=== PATIENT | male | born 1990 | race Hispanic/Latino ===

== ENCOUNTER 2018-04-10 20:49 | Emergency (ER) | payer BC ==
[2018-04-10 21:13] VITALS: BP 143/72; PULSE 116; RESP 17; TEMP 98.3; O2SAT 100
--- NOTE | 2018-04-10 21:28 | ED PDOC ---
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 PMD: none provided Past Medical History Reviewed: Historical Data, Nursing Documentation, Vital Signs Vital Signs: Last Vital Signs Temp 98.3 F 04/10/18 20:51 Pulse 116 H 04/10/18 20:51 Resp 17 04/10/18 20:51 BP 143/72 04/10/18 20:51 Pulse Ox 100 04/10/18 20:51 - Medical History PMH: No Chronic Diseases - Surgical History Surgical History: No Surg Hx - Family History Family History: States: Unknown Family Hx - Allergies Allergies/Adverse Reactions: Allergies Allergy/AdvReac Type Severity Reaction Status Date / Time No Known Allergies Allergy Verified 04/10/18 21:13 Review of Systems ROS Statement: Except As Marked, All Systems Reviewed And Found Negative Musculoskeletal: Positive for: Foot Pain (left ankle with swelling) Physical Exam - Reviewed Nursing Documentation Reviewed: Yes Vital Signs Reviewed: Yes - Physical Exam Appears: Positive for: Non-toxic, No Acute Distress Head Exam: Positive for: ATRAUMATIC, NORMAL INSPECTION, NORMOCEPHALIC Skin: Positive for: Normal Color Eye Exam: Positive for: Normal appearance Neck: Positive for: Normal Respiratory: Positive for: Normal Breath Sounds. Negative for: Respiratory Distress Extremity: Positive for: Other (decreased right plantar flexion; right achilles tendon non-palpable). Negative for: Tenderness (right ankle), Deformity (right foot), Swelling (right ankle) Neurologic/Psych: Positive for: Alert, Oriented, Gait (right-sided limp). Negative for: Motor/Sensory Deficits - ECG O2 Sat by Pulse Oximetry: 100 (RA) Pulse Ox Interpretation: Normal Medical Decision Making Medical Decision Making: Initial Plan: * Motrin 600mg PO * Xray ankle (right) * Podiatry consult Pt seen and examined by Podiatry resident. Splint placed, crutches. Scribe Attestation: Documented by Keya Macdonald, acting as a scribe for Katina Ruby PA-C. Provider Scribe Attestation: All medical record entries made by the Scribe were at my direction and personally dictated by me. I have reviewed the chart and agree that the record accurately reflects my personal performance of the history, physical exam, medical decision making, and the department course for this patient. I have also personally directed, reviewed, and agree with the discharge instructions and disposition. Disposition - Clinical Impression Clinical Impression: Achilles tendon injury - Patient ED Disposition Is Patient to be Admitted: No Counseled Patient/Family Regarding: Diagnosis, Need For Followup - Disposition Referrals: Eneida Car MD [Staff Provider] - Disposition: Routine/Home Disposition Time: 23:03 Condition: STABLE Additional Instructions: Please follow-up with Dr. Daley. Instructions: Achilles Tendon Rupture Forms: [employer] ([place])
--- NOTE | 2018-04-10 23:13 | CP.PCM.CON ---
History of Present Illness - History of Present Illness History of Present Illness: Consult note for Dr. Jayme Banegas 28M with no PMH seen in ED complaining of pain to his right posterior leg. Patient states that this evening he was playing soccer for the first time in many months when he felt a pop in the back of his right leg at the level of the achilles. Patient states that he is not currently in any pain and has not tried any forms of medication other than the ibuprofen given to him on arrival to the ED. He is AAO x 3 and NAD. Denies any further pedal complaints at this time. Denies any recent N/V/F/C/CP/SOB/D Meds: Denies All: NKDA PSH: Denies FHx: Unremarkable SHx: Denies tobacco products and illicit drug use, social EtOH, works as a software installer Review of Systems - Review of Systems All systems: reviewed and no additional remarkable complaints except Review of Systems: as per HPI Past Patient History - Past Social History Smoking Status: Never Smoked - CARDIAC Hx Cardiac Disorders: No - PULMONARY Hx Respiratory Disorders: No - NEUROLOGICAL Hx Neurological Disorder: No - HEENT Hx HEENT Problems: No - RENAL Hx Chronic Kidney Disease: No - ENDOCRINE/METABOLIC Hx Endocrine Disorders: No - HEMATOLOGICAL/ONCOLOGICAL Hx Blood Disorders: No - INTEGUMENTARY Hx Dermatological Problems: No - MUSCULOSKELETAL/RHEUMATOLOGICAL Hx Musculoskeletal Disorders: No - GASTROINTESTINAL Hx Gastrointestinal Disorders: No - GENITOURINARY/GYNECOLOGICAL Hx Genitourinary Disorders: No - PSYCHIATRIC Hx Psychophysiologic Disorder: No Hx Substance Use: No - SURGICAL HISTORY Hx Surgeries: No - ANESTHESIA Hx Anesthesia: Yes Meds Allergies/Adverse Reactions: Allergies Allergy/AdvReac Type Severity Reaction Status Date / Time No Known Allergies Allergy Verified 04/10/18 21:13 Physical Exam - Constitutional Appears: Well, Non-toxic, No Acute Distress - Head Exam Head Exam: ATRAUMATIC, NORMOCEPHALIC - Extremities Exam Additional comments: LE focused exam: Vasc: DP/PT pulses fully palpable 2/4 b/l. Skin temperature warm to warm from proximal to distal. CFT < 3 seconds to all digits b/l. No edema noted b/l Neuro: Epicritic and protective sensation grossly intact b/l Derm: No open lesions, wound, maceration, xerosis abnormal pigmentation or abnormal growths noted b/l MSK: Minimal POP to right achilles tendon. Palpable dell noted to right achilles tendon. Plantarflexion of right foot weakened but present in comparison to left foot - Neurological Exam Neurological exam: Alert, Oriented x3 - Psychiatric Exam Psychiatric exam: Normal Affect, Normal Mood Results - Vital Signs Recent Vital Signs: Last Vital Signs Temp 98.3 F 04/10/18 20:51 Pulse 116 H 04/10/18 20:51 Resp 17 04/10/18 20:51 BP 143/72 04/10/18 20:51 Pulse Ox 100 04/10/18 21:33 Assessment & Plan - Assessment and Plan (Free Text) Assessment: 28M with partial vs. full achilles tendon rupture of right foot Plan: Patient seen and evaluated Plan discussed with attending Dr. Jayme Banegas Xray right ankle: No acute fracture or dislocation appreciated. Kager's triangle noted to not be intact Patient leg dressed in [place] compression with plantarflexed posterior splint Patient dispensed crutches and instructed to keep dressing C/D/I Patient instructed to practice RICE therapy for time being Pt to follow up in Dr. Jayme Banegas's office for probable pre-operative evaluation early next week - Date & Time Date: 04/10/18 Time: 23:18
--- NOTE | 2018-04-11 07:36 | RAD ---
PROCEDURE: Right Ankle Radiographs. HISTORY: posterior ankle pain, snap sensation COMPARISON: None FINDINGS: BONES: No acute fracture or destructive bony lesion identified. JOINTS: Normal. No osteoarthritis. Ankle mortise maintained. Talar dome intact SOFT TISSUES: Subtle convex posterior margins at the upper to mid Achilles tendon region may indicate injury here. There is inhomogeneous density deep to this level as well and consideration or MRI is advised for possible partial tear of the Achilles tendon or other soft tissue injury. OTHER FINDINGS: None. IMPRESSION: No acute fracture or destructive bony lesion identified. Potential Achilles tendon injury. Follow-up MRI recommended.
== END 2018-04-10 23:23 | disposition home or self-care (01) ==
LOC: H.ER 20:49
DX: S86.011A Strain of right Achilles tendon, initial encounter (principal); X50.9XXA Other and unspecified overexertion or strenuous movements or postures, initial encounter; Y93.66 Activity, soccer